=== PATIENT | male | born 1975 | race African-American/Black ===

== ENCOUNTER 2021-12-03 13:15 | Emergency (ER) | payer OTHER ==
[~2021-12-03] VITALS: Ht 170.2 cm; Wt 79.4 kg
[2021-12-03] MEDS ORDERED: NOHOMEMEDICATIONS (13:24)
[2021-12-03 13:51] LABS: ABSOLUTE LYMPHOCYTES 1.4 thou/uL (0.8-5.3); ABSOLUTE MONOCYTES 0.6 thou/uL (0.0-1.2); ABSOLUTE NEUTROPHILS 6.1 thou/uL (1.6-8.1); BASOPHILS 0.3 %; EOSINOPHILS 0.2 %; HEMATOCRIT 43.8 % (42.0-52.0); HEMOGLOBIN 14.6 gm/dL (14.0-18.0); LYMPHOCYTES 16.9 %; MCH 32.1 pg (26.0-34.0); MCHC 33.4 g/dL (28.0-37.0); MCV 96.1 fL (80.0-100.0); MPV 9.4 fl. (7.2-11.1); NUCLEATED RBCS 0 /100WBC; PLATELET COUNT* 328 thou/uL (150-400); POLYS 75.6 %; RBC 4.56 mil/uL (4.50-6.00); RDW-CV 13.7 % (10.5-14.5); WBC 8.1 thou/uL (4.0-11.0)
[2021-12-03 14:36] LABS: CALCIUM 9.5 mg/dL (8.5-10.1); POTASSIUM 3.8 mmol/L (3.5-5.1)
[2021-12-03 14:40] LABS: ALBUMIN 4.4 g/dL (3.4-5.0); TOTAL BILIRUBIN 0.8 mg/dL (<0.1-1.0); TOTAL PROTEIN 8.3 g/dL (6.4-8.2)
[2021-12-03] MEDS ORDERED: ONDANSETRON ODT4 MG PO (15:34)
[2021-12-03 15:45] VITALS: BP 134/94
--- NOTE | 2021-12-04 10:56 | EKG ---
[place] [address] ELECTROCARDIOGRAM REPORT Name: CLIFTON WYATT Room: [facility]#: [id number] Admission: 12/03/21 Attend Phys: Discharge: 12/03/21 Date of : 79 Date of Service: 12/03/21 1341 Report #: [id number] THIS REPORT FOR: //name// [facility] ED Test Date: 2021-12-03 Test Time: 13:41:19 Pat Name: CLIFTON WYATT Department: Room: Gender: Publishing Director: [facility] : 1975 Requested By: Joe Lobo Order Number: [id number] MD: Tio Oakes Measurements Intervals [place] Rate: 59 P: -8 [place]: 105 QRS: 50 QRSD: 87 T: 53 QT: 432 QTc: 428 Interpretive Statements Sinus rhythm Short [place] interval No previous ECG available for comparison Electronically Signed On 12-04-2021 10:56:13 [employer] by Tio Oakes [email or web address] <ELECTRONICALLY SIGNED> By: Tio Oakes MD, [facility] 12/04/21 1056 1341 1341 Tio Oakes MD, FACC /EPI
== END 2021-12-03 15:45 | disposition home or self-care (01) ==
LOC: M.ERS 13:15
PROVIDERS: Physician Assistant
DX: R10.33 Periumbilical pain (principal)

== ENCOUNTER 2021-12-03 16:53 | Emergency (ER) | payer OTHER ==
[~2021-12-03] VITALS: Ht 172.7 cm; Wt 77.1 kg
[~2021-12-03 16:53] MED LIST: NOHOMEMEDICATIONS; ONDANSETRON ODT4 MG PO
[2021-12-03 17:02] VITALS: BP 180/99
== END 2021-12-03 17:07 | disposition left against medical advice (07) ==
LOC: M.ERS 16:53
DX: Z53.21 Procedure and treatment not carried out due to patient leaving prior to being seen by health care provider (principal)